=== PATIENT | male | born 1960 | race African-American/Black ===

== ENCOUNTER 2018-02-05 00:52 | Emergency (ER) | payer OTHER ==
[2018-02-05] MEDS: KETOROLAC 60 MG/2 ML VIAL (J1885) IM (01:39)
== END 2018-02-05 02:43 | disposition home or self-care (01) ==
LOC: M ED 00:52
DX: S39.012A Strain of muscle, fascia and tendon of lower back, initial encounter (principal); X58.XXXA Exposure to other specified factors, initial encounter; Y92.89 Other specified places as the place of occurrence of the external cause
CPT/HCPCS: J1885